=== PATIENT | male | born 1965 | race Hispanic/Latino ===

== ENCOUNTER 2018-08-02 19:11 | Emergency (ER) | payer MEDICAID ==
[2018-08-02 19:18] VITALS: BP 129/75
--- NOTE | 2018-08-02 23:15 | Emergency Department Report ---
ED Lower Extremity HPI - General Chief Complaint: Extremity Injury, Lower Stated Complaint: LEG PAIN Time Seen by Provider: 08/02/18 23:01 Source: patient Mode of arrival: Ambulatory Limitations: No Limitations - Related Data Previous Rx's Medication Instructions Recorded Last Taken Type Acetaminophen [Acetaminophen TAB] 1,000 mg PO Q6HR PRN #30 tablet 08/02/18 Unknown Rx Cyclobenzaprine [Flexeril] 10 mg PO TID PRN #30 tablet 08/02/18 Unknown Rx Diclofenac 1% [Diclofenac 1% 1 applicatio TP QID PRN #1 tube 08/02/18 Unknown Rx topical gel] Allergies Allergy/AdvReac Type Severity Reaction Status Date / Time No Known Allergies Allergy Verified 08/02/18 19:38 ED Review of Systems ROS: Stated complaint: LEG PAIN Other details as noted in HPI ED Past Medical Hx - Past Medical History Previous Medical History?: Yes Hx of Cancer: Yes (colon,.) Additional medical history: back pain, right arm surgery - Surgical History Past Surgical History?: Yes Additional Surgical History: cage placed in back, - Social History Smoking Status: Current Every Day Smoker Substance Use Type: None - Medications Home Medications: Home Medications Medication Instructions Recorded Confirmed Last Taken Type Acetaminophen [Acetaminophen TAB] 1,000 mg PO Q6HR PRN #30 tablet 08/02/18 Unknown Rx Cyclobenzaprine [Flexeril] 10 mg PO TID PRN #30 tablet 08/02/18 Unknown Rx Diclofenac 1% [Diclofenac 1% 1 applicatio TP QID PRN #1 tube 08/02/18 Unknown Rx topical gel] ED Physical Exam - General Limitations: No Limitations ED Course Vital Signs 08/02/18 08/02/18 19:17 19:35 Temperature 97.9 F Pulse Rate 76 82 Respiratory 18 18 Rate Blood Pressure 129/75 129/75 O2 Sat by Pulse 99 97 Oximetry ED Lower Extremity MDM - Medical Decision Making pt presents for LLE pain states he hyperextended leg going up stars last night, paain 5/10 since, pt is exacerbated by movement , pain is relieved by rest. pt remains ambulatory to baseline there is no calf tenderness, neg jeremy's, distal pulses intact, strength 5/5 bilat, will check [place] PM AWARE states he has pcp for hx of colon Cancer. [place] PM Aware 08/01/2018: OXYCODONE HCL 15 MG TABLET 150.0 [place] M [id number] (8164 135.0 MME Medicaid [place] Plan: ibuprofen, flexeril, diclofenace , follow up with pcp in 2-3 days, pt verbalized agreement and understanding of discharge plan. Critical care attestation.: If time is entered above; I have spent that time in minutes in the direct care of this critically ill patient, excluding procedure time. ED Disposition Clinical Impression: Muscle strain, lower leg Qualifiers: Encounter type: initial encounter Laterality: left Qualified Code(s): S86.912A - Strain of unspecified muscle(s) and tendon(s) at lower leg level, left leg, initial encounter Disposition: TO HOME OR SELFCARE Is pt being admited?: No Does the pt Need Aspirin: No Condition: Stable Instructions: Muscle Strain (ED) Prescriptions: Acetaminophen [Acetaminophen TAB] 1,000 mg PO Q6HR PRN #30 tablet PRN Reason: pain Diclofenac 1% [Diclofenac 1% topical gel] 1 applicatio TP QID PRN #1 tube PRN Reason: pain Cyclobenzaprine [Flexeril] 10 mg PO TID PRN #30 tablet PRN Reason: Muscle Spasm Referrals: KIMBERLEY SPENCER MD [Staff Physician] - 3-5 Days Forms: Work/School Release Form(ED) Time of Disposition: 23:20
--- NOTE | 2018-08-11 00:51 | Emergency Department Report ---
ED Lower Extremity HPI - General Chief Complaint: Extremity Injury, Lower Stated Complaint: LEG PAIN Time Seen by Provider: 08/02/18 23:01 Source: patient Mode of arrival: Ambulatory Limitations: No Limitations - History of Present Illness Initial Comments: pt is a 53 y/o male who presents for LLE pain. Pt states he hyperextended leg going up stars last night, pain described as 5/10 since aching sense, pain is exacerbated by movement, pain is relieved by rest. pt remains ambulatory to baseline per patient. MD Complaint: leg injury Onset/Timin -: days(s) Injury: Leg: Right Type of Injury: blunt Place: home Severity: moderate Severity scale (0 -10): 4 Improves With: nothing Worsens With: movement, palpation Context: fall, direct blow Associated Symptoms: ambulatory. denies: snap/pop sensation, swelling, numbness, tingling - Related Data Previous Rx's Medication Instructions Recorded Last Taken Type Acetaminophen [Acetaminophen TAB] 1,000 mg PO Q6HR PRN #30 tablet 08/02/18 Unknown Rx Cyclobenzaprine [Flexeril] 10 mg PO TID PRN #30 tablet 08/02/18 Unknown Rx Diclofenac 1% [Diclofenac 1% 1 applicatio TP QID PRN #1 tube 08/02/18 Unknown Rx topical gel] Allergies Allergy/AdvReac Type Severity Reaction Status Date / Time No Known Allergies Allergy Verified 08/02/18 19:38 ED Review of Systems ROS: Stated complaint: LEG PAIN Other details as noted in HPI Constitutional: denies: chills, fever Eyes: denies: eye pain, eye discharge, vision change ENT: denies: ear pain, throat pain Respiratory: denies: cough, shortness of breath, wheezing Cardiovascular: denies: chest pain, palpitations Endocrine: no symptoms reported Gastrointestinal: denies: abdominal pain, nausea, diarrhea Genitourinary: denies: urgency, dysuria Musculoskeletal: other (leg pain ). denies: back pain, joint swelling, arthralgia Skin: denies: rash, lesions Neurological: denies: headache, weakness, paresthesias Psychiatric: denies: anxiety, depression Hematological/Lymphatic: denies: easy bleeding, easy bruising ED Past Medical Hx - Past Medical History Previous Medical History?: Yes Hx of Cancer: Yes (colon,.) Additional medical history: back pain, right arm surgery - Surgical History Past Surgical History?: Yes Additional Surgical History: cage placed in back, - Social History Smoking Status: Current Every Day Smoker Substance Use Type: None - Medications Home Medications: Home Medications Medication Instructions Recorded Confirmed Last Taken Type Acetaminophen [Acetaminophen TAB] 1,000 mg PO Q6HR PRN #30 tablet 08/02/18 Unknown Rx Cyclobenzaprine [Flexeril] 10 mg PO TID PRN #30 tablet 08/02/18 Unknown Rx Diclofenac 1% [Diclofenac 1% 1 applicatio TP QID PRN #1 tube 08/02/18 Unknown Rx topical gel] ED Physical Exam - General Limitations: No Limitations General appearance: alert - Head Head exam: Present: atraumatic, normocephalic - Eye Eye exam: Present: normal appearance, PERRL, EOMI Pupils: Present: normal accommodation - ENT ENT exam: Present: normal orophraynx, mucous membranes moist, TM's normal bilaterally, normal external ear exam - Neck Neck exam: Present: full ROM. Absent: tenderness, meningismus, lymphadenopathy, thyromegaly - Expanded Neck Exam Expanded Neck exam: Absent: tenderness, midline deformity, anterior neck swelling, thyroid mass, carotid bruit, tracheal deviation - Respiratory Respiratory exam: Present: normal lung sounds bilaterally. Absent: respiratory distress, wheezes, stridor, chest wall tenderness - Cardiovascular Cardiovascular Exam: Present: regular rate, normal rhythm, normal heart sounds. Absent: systolic murmur, diastolic murmur, rubs, gallop - GI/Abdominal GI/Abdominal exam: Present: soft, normal bowel sounds. Absent: distended, tenderness, guarding, rebound, rigid, bruit, hernia - Rectal Rectal exam: Present: deferred - Extremities Exam Extremities exam: Present: normal inspection, full ROM, normal capillary refill. Absent: tenderness, pedal edema, joint swelling, calf tenderness - Expanded Lower Extremity Exam Right Hip exam: Present: normal inspection, full ROM. Absent: tenderness Upper Leg exam: Present: normal inspection, full ROM. Absent: tenderness Knee exam: Present: full ROM, full knee extension. Absent: tenderness, swelling, abrasion, pain w/ pronation/supination Lower Leg exam: Present: normal inspection, full ROM. Absent: tenderness, swelling, abrasion Ankle exam: Present: normal inspection, full ROM. Absent: tenderness, swelling, abrasion, anterior draw sign Foot/Toe exam: Present: normal inspection, full ROM. Absent: tenderness, swelling, abrasion, laceration, tenderness at base of 5th metatarsal Neuro vascular tendon exam: Absent: pulse deficit, motor deficit, sensory deficit, tendon deficit Gait: Positive: observed and normal - Back Exam Back exam: Present: normal inspection, full ROM. Absent: tenderness, CVA tenderness (R), CVA tenderness (L), muscle spasm, paraspinal tenderness, vertebral tenderness, rash noted - Neurological Exam Neurological exam: Present: alert, oriented X3, CN II-XII intact, normal gait, reflexes normal - Psychiatric Psychiatric exam: Present: normal affect, normal mood - Skin Skin exam: Present: warm, dry, intact, normal color. Absent: rash ED Course Vital Signs 08/02/18 08/02/18 08/02/18 19:17 19:35 23:37 Temperature 97.9 F Pulse Rate 76 82 78 Respiratory 18 18 17 Rate Blood Pressure 129/75 129/75 O2 Sat by Pulse 99 97 97 Oximetry ED Lower Extremity MDM - Medical Decision Making There is no calf tenderness, neg jeremy's, distal pulses intact, strength 5/5 bilat, no pain bruising or swelling or deformity on exam , will check [place] PM AWARE states he has pcp for hx of colon Cancer on oxycodone. I advised patient that I checked [place] PMAWARE site, pt immediatley advises that pain it totally relieved, I advises pt that he can only receive controlled substance pain medication prescribed by Pain management doctor per his agreement with same, I will rx short course of nsaid , muscle relaxant until he see pain management in 2 days, pt verbalized agreement and understanding of same. Last oxycodone RX: [place] PM Aware 08/01/2018: OXYCODONE HCL 15 MG TABLET 150.0 [place] M [id number] (8164 135.0 MME Medicaid [place] Plan: ibuprofen, flexeril, diclofenace , follow up with pcp pain management doctor in 2 days as scheduled. pt verbalized agreement and understanding of discharge plan. Critical care attestation.: If time is entered above; I have spent that time in minutes in the direct care of this critically ill patient, excluding procedure time. ED Disposition Disposition: DC- TO HOME OR SELFCARE Condition: Stable Instructions: Muscle Strain (ED) Prescriptions: Acetaminophen [Acetaminophen TAB] 1,000 mg PO Q6HR PRN #30 tablet PRN Reason: pain Diclofenac 1% [Diclofenac 1% topical gel] 1 applicatio TP QID PRN #1 tube PRN Reason: pain Cyclobenzaprine [Flexeril] 10 mg PO TID PRN #30 tablet PRN Reason: Muscle Spasm Referrals: KIMBERLEY SPENCER MD [Staff Physician] - 3-5 Days Forms: Work/School Release Form(ED)
== END 2018-08-02 23:37 | disposition home or self-care (01) ==
LOC: ED 19:11
DX: S86.912A Strain of unspecified muscle(s) and tendon(s) at lower leg level, left leg, initial encounter (principal); F17.200 Nicotine dependence, unspecified, uncomplicated; Z85.038 Personal history of other malignant neoplasm of large intestine; X50.9XXA Other and unspecified overexertion or strenuous movements or postures, initial encounter; Y93.89 Activity, other specified; Y92.89 Other specified places as the place of occurrence of the external cause; Y99.8 Other external cause status
CPT/HCPCS: 99282

== ENCOUNTER 2020-01-13 09:17 | Emergency (ER) | payer MEDICAID ==
[2020-01-13 09:28] VITALS: BP 116/65
--- NOTE | 2020-01-13 10:59 | Emergency Department Report ---
ED ENT HPI - General Chief complaint: Upper Respiratory Infection Stated complaint: SINUS Source: patient Mode of arrival: Ambulatory Limitations: No Limitations - History of Present Illness Initial comments: The patient was evaluated in the emergency department for symptoms described in the history of present illness. He/she was evaluated in the context of the global COVID-19 pandemic, which necessitated consideration that the patient might be at risk for infection with the virus that causes COVID-19. Institutional protocols and algorithms that pertain to the evaluation of patients at risk for COVID-19 are in a state of rapid change based on information released by regulatory bodies including the CDC and federal and state organizations. These policies and algorithms were followed during the patient's care in the emergency department. Please note that these policies, procedures and recommendations changed on a rapid basis. 54-year-old male with a history of stage IV colon cancer presents to the emergency room complaining of sinus congestion swollen face and a dental abscess for 1 week. Patient states that he had pinkeye last week but has been u sing [id number] medication and is now cleared. Patient denies any fever or chills but does report swelling on the right side of his face nasal congestion denies any shortness of breath fever chest pain. MD complaint: tooth pain Onset/Timin -: days(s) Severity: moderate Severity scale (0 -10): 6 Quality: aching Consistency: constant Improves with: none Worsens with: none Context- Dental: history of dental caries, poor dental care Associated Symptoms: gum swelling, toothache, rhinorrhea, other (Nasal congestion). denies: fever, cough - Related Data Previous Rx's Medication Instructions Recorded Last Taken Type Acetaminophen [Acetaminophen TAB] 1,000 mg PO Q6HR PRN #30 tablet 08/02/18 Unknown Rx Cyclobenzaprine [Flexeril] 10 mg PO TID PRN #30 tablet 08/02/18 Unknown Rx Diclofenac 1% [Diclofenac 1% 1 applicatio TP QID PRN #1 tube 08/02/18 Unknown Rx topical gel] Amoxicillin [Amoxicillin TAB] 875 mg PO BID 10 Days #20 tablet 01/13/20 Unknown Rx Fluticasone [Flonase] 1 spray NS QDAY #1 bottle 01/13/20 Unknown Rx Ibuprofen [Motrin 600 MG tab] 600 mg PO Q8H PRN #21 tablet 01/13/20 Unknown Rx Allergies Allergy/AdvReac Type Severity Reaction Status Date / Time No Known Allergies Allergy Verified 08/02/18 19:38 ED Dental HPI - General Chief complaint: Upper Respiratory Infection Stated complaint: SINUS Source: patient Mode of arrival: Ambulatory Limitations: No Limitations - Related Data Previous Rx's Medication Instructions Recorded Last Taken Type Acetaminophen [Acetaminophen TAB] 1,000 mg PO Q6HR PRN #30 tablet 08/02/18 Unknown Rx Cyclobenzaprine [Flexeril] 10 mg PO TID PRN #30 tablet 08/02/18 Unknown Rx Diclofenac 1% [Diclofenac 1% 1 applicatio TP QID PRN #1 tube 08/02/18 Unknown Rx topical gel] Amoxicillin [Amoxicillin TAB] 875 mg PO BID 10 Days #20 tablet 01/13/20 Unknown Rx Fluticasone [Flonase] 1 spray NS QDAY #1 bottle 01/13/20 Unknown Rx Ibuprofen [Motrin 600 MG tab] 600 mg PO Q8H PRN #21 tablet 01/13/20 Unknown Rx Allergies Allergy/AdvReac Type Severity Reaction Status Date / Time No Known Allergies Allergy Verified 08/02/18 19:38 ED Review of Systems ROS: Stated complaint: SINUS Other details as noted in HPI Comment: All other systems reviewed and negative ED Past Medical Hx - Past Medical History Additional medical history: back pain, right arm surgery, colon ca - Surgical History Additional Surgical History: cage placed in back, - Social History Smoking Status: Current Every Day Smoker - Medications Home Medications: Home Medications Medication Instructions Recorded Confirmed Last Taken Type Acetaminophen [Acetaminophen TAB] 1,000 mg PO Q6HR PRN #30 tablet 08/02/18 Unknown Rx Cyclobenzaprine [Flexeril] 10 mg PO TID PRN #30 tablet 08/02/18 Unknown Rx Diclofenac 1% [Diclofenac 1% 1 applicatio TP QID PRN #1 tube 08/02/18 Unknown Rx topical gel] Amoxicillin [Amoxicillin TAB] 875 mg PO BID 10 Days #20 tablet 01/13/20 Unknown Rx Fluticasone [Flonase] 1 spray NS QDAY #1 bottle 01/13/20 Unknown Rx Ibuprofen [Motrin 600 MG tab] 600 mg PO Q8H PRN #21 tablet 01/13/20 Unknown Rx ED Physical Exam - General Limitations: No Limitations General appearance: alert, in no apparent distress - Eye Eye exam: Present: normal appearance, PERRL - ENT ENT exam: Present: mucous membranes moist, other (Mild right facial swelling just lateral of the right nasal bridge) - Expanded ENT Exam Expanded TM/Canal exam: Perforation: Right TM, Left TM (Chronic) Teeth exam: Present: dental caries, gingival enlargement Throat exam: Positive: normal inspection - Neck Neck exam: Present: normal inspection, full ROM - Respiratory Respiratory exam: Present: normal lung sounds bilaterally. Absent: respiratory distress - Cardiovascular Cardiovascular Exam: Present: regular rate, normal rhythm. Absent: systolic murmur, diastolic murmur, rubs, gallop - Neurological Exam Neurological exam: Present: alert, oriented X3, normal gait - Psychiatric Psychiatric exam: Present: normal affect, normal mood - Skin Skin exam: Present: warm, dry, intact, normal color. Absent: rash ED Course Vital Signs 01/13/20 09:24 Temperature 97.5 F L Pulse Rate 76 Respiratory 18 Rate Blood Pressure 116/65 O2 Sat by Pulse 97 Oximetry ED Medical Decision Making - Medical Decision Making 54-year-old male with a history of stage IV colon cancer presents to the emergency room complaining of sinus congestion swollen face and a dental abscess for 1 week. Patient states that he had pinkeye last week but has been using [id number] medication and is now cleared. Patient denies any fever or chills but does report swelling on the right side of his face nasal congestion denies any shortness of breath fever chest pain. Patient will be treated with amoxicillin 875, ibuprofen 600 mg in Flonase. This will cover both sinusitis as well as a dental abscess. Instructed patient to follow-up with a primary care provider. Keep his appointments to the cancer center. Critical care attestation.: If time is entered above; I have spent that time in minutes in the direct care of this critically ill patient, excluding procedure time. ED Disposition Clinical Impression: Dental abscess Sinusitis Qualifiers: Sinusitis location: frontal Chronicity: acute Recurrence: non-recurrent Qualified Code(s): J01.10 - Acute frontal sinusitis, unspecified Disposition: TO HOME OR SELFCARE Is pt being admited?: No Does the pt Need Aspirin: No Condition: Stable Instructions: Sinusitis, Adult, [id number], Dental Abscess Additional Instructions: Complete antibiotics as prescribed take pain medication as needed use nasal spray as prescribed. Prescriptions: Amoxicillin [Amoxicillin TAB] 875 mg PO BID 10 Days #20 tablet Fluticasone [Flonase] 1 spray NS QDAY #1 bottle Ibuprofen [Motrin 600 MG tab] 600 mg PO Q8H PRN #21 tablet PRN Reason: Pain Referrals: PRIMARY CAREMD [Primary Care Provider] - 3-5 Days PRANAY CREWS MD [Staff Physician] - 3-5 Days
== END 2020-01-13 11:04 | disposition home or self-care (01) ==
LOC: ED 09:17
DX: K04.7 Periapical abscess without sinus (principal); J01.10 Acute frontal sinusitis, unspecified; F17.200 Nicotine dependence, unspecified, uncomplicated; Z79.899 Other long term (current) drug therapy
CPT/HCPCS: 99281

== ENCOUNTER 2020-05-23 16:43 | Emergency (ER) | payer MEDICAID ==
[2020-05-23 17:06] VITALS: BP 105/71
--- NOTE | 2020-05-23 17:14 | Emergency Department Report ---
ED ENT HPI - General Chief complaint: Dental/Oral Stated complaint: DIZZY Source: patient Mode of arrival: Ambulatory Limitations: No Limitations - History of Present Illness Initial comments: 55-year-old male presents to the emergency room complaining of a 1 day history of dental and gum pain and swelling. Patient states that he is aware that he has bad teeth. Patient states he had stage IV colon cancer and after he finished a long-term treatment of chemo his teeth started to crumble and break. Patient states he is aware that he needs to see a dentist but is waiting on his stimulus money to see 1. Patient denies any fever chills. States has been taking Goody powders. MD complaint: tooth pain Location: tooth # Severity scale (0 -10): 9 Quality: aching, sharp Consistency: constant Worsens with: none Context- Dental: history of dental caries, poor dental care - Related Data Previous Rx's Medication Instructions Recorded Last Taken Type Acetaminophen [Acetaminophen TAB] 1,000 mg PO Q6HR PRN #30 tablet 08/02/18 Unknown Rx Cyclobenzaprine [Flexeril] 10 mg PO TID PRN #30 tablet 08/02/18 Unknown Rx Diclofenac 1% [Diclofenac 1% 1 applicatio TP QID PRN #1 tube 08/02/18 Unknown Rx topical gel] Amoxicillin [Amoxicillin TAB] 875 mg PO BID 10 Days #20 tablet 01/13/20 Unknown Rx Fluticasone [Flonase] 1 spray NS QDAY #1 bottle 01/13/20 Unknown Rx Ibuprofen [Motrin 600 MG tab] 600 mg PO Q8H PRN #21 tablet 01/13/20 Unknown Rx Clindamycin [Clindamycin CAP] 300 mg PO Q8H 10 Days #30 cap 05/23/20 Unknown Rx Ibuprofen [Motrin 600 MG tab] 600 mg PO Q8H PRN #30 tablet 05/23/20 Unknown Rx Allergies Allergy/AdvReac Type Severity Reaction Status Date / Time No Known Allergies Allergy Verified 05/23/20 17:06 ED Dental HPI - General Chief complaint: Dental/Oral Stated complaint: DIZZY Source: patient Mode of arrival: Ambulatory Limitations: No Limitations - Related Data Previous Rx's Medication Instructions Recorded Last Taken Type Acetaminophen [Acetaminophen TAB] 1,000 mg PO Q6HR PRN #30 tablet 08/02/18 Unknown Rx Cyclobenzaprine [Flexeril] 10 mg PO TID PRN #30 tablet 08/02/18 Unknown Rx Diclofenac 1% [Diclofenac 1% 1 applicatio TP QID PRN #1 tube 08/02/18 Unknown Rx topical gel] Amoxicillin [Amoxicillin TAB] 875 mg PO BID 10 Days #20 tablet 01/13/20 Unknown Rx Fluticasone [Flonase] 1 spray NS QDAY #1 bottle 01/13/20 Unknown Rx Ibuprofen [Motrin 600 MG tab] 600 mg PO Q8H PRN #21 tablet 01/13/20 Unknown Rx Clindamycin [Clindamycin CAP] 300 mg PO Q8H 10 Days #30 cap 05/23/20 Unknown Rx Ibuprofen [Motrin 600 MG tab] 600 mg PO Q8H PRN #30 tablet 05/23/20 Unknown Rx Allergies Allergy/AdvReac Type Severity Reaction Status Date / Time No Known Allergies Allergy Verified 05/23/20 17:06 ED Review of Systems ROS: Stated complaint: DIZZY Other details as noted in HPI Comment: All other systems reviewed and negative ED Past Medical Hx - Past Medical History Hx of Cancer: Yes (colon) Additional medical history: back pain, right arm surgery, colon ca - Surgical History Additional Surgical History: cage placed in back, - Social History Smoking Status: Never Smoker Substance Use Type: None - Medications Home Medications: Home Medications Medication Instructions Recorded Confirmed Last Taken Type Acetaminophen [Acetaminophen TAB] 1,000 mg PO Q6HR PRN #30 tablet 08/02/18 Unknown Rx Cyclobenzaprine [Flexeril] 10 mg PO TID PRN #30 tablet 08/02/18 Unknown Rx Diclofenac 1% [Diclofenac 1% 1 applicatio TP QID PRN #1 tube 08/02/18 Unknown Rx topical gel] Amoxicillin [Amoxicillin TAB] 875 mg PO BID 10 Days #20 tablet 01/13/20 Unknown Rx Fluticasone [Flonase] 1 spray NS QDAY #1 bottle 01/13/20 Unknown Rx Ibuprofen [Motrin 600 MG tab] 600 mg PO Q8H PRN #21 tablet 01/13/20 Unknown Rx Clindamycin [Clindamycin CAP] 300 mg PO Q8H 10 Days #30 cap 05/23/20 Unknown Rx Ibuprofen [Motrin 600 MG tab] 600 mg PO Q8H PRN #30 tablet 03/25/21 Unknown Rx ED Physical Exam - General Limitations: No Limitations General appearance: alert, cachectic - Head Head exam: Present: atraumatic, normocephalic - Eye Eye exam: Present: normal appearance - Expanded ENT Exam Expanded Mouth exam: Absent: drooling, trismus Teeth exam: Present: dental caries, fractured tooth #, gingival enlargement Throat exam: Positive: normal inspection - Neck Neck exam: Present: full ROM - Respiratory Respiratory exam: Absent: accessory muscle use - Cardiovascular Cardiovascular Exam: Present: regular rate, normal rhythm. Absent: systolic murmur, diastolic murmur, rubs, gallop - Extremities Exam Extremities exam: Present: normal inspection, full ROM - Back Exam Back exam: Present: normal inspection - Neurological Exam Neurological exam: Present: alert, oriented X3, normal gait - Psychiatric Psychiatric exam: Present: normal affect, normal mood - Skin Skin exam: Present: warm, dry, intact, normal color. Absent: rash ED Course Vital Signs 05/23/20 17:03 Temperature 99.1 F Pulse Rate 104 H Respiratory 20 Rate Blood Pressure 105/71 O2 Sat by Pulse 98 Oximetry ED Medical Decision Making - Medical Decision Making 55-year-old male presents to the emergency room complaining of a 1 day history of dental and gum pain and swelling. Patient states that he is aware that he has bad teeth. Patient states he had stage IV colon cancer and after he finished a long-term treatment of chemo his teeth started to crumble and break. Patient states he is aware that he needs to see a dentist but is waiting on his stimulus money to see 1. Patient denies any fever chills. States has been taking Goody powders. Patient be placed on clindamycin 300 mg every 8 hours for 10 days and ibuprofen 600 mg p.o. every 8 hours as needed for pain. Patient is referred to a dentist. Critical care attestation.: If time is entered above; I have spent that time in minutes in the direct care of this critically ill patient, excluding procedure time. ED Disposition Clinical Impression: Dental abscess Disposition: TO HOME OR SELFCARE Is pt being admited?: No Does the pt Need Aspirin: No Condition: Stable Instructions: Dental Abscess, [id number] Additional Instructions: Complete antibiotics as prescribed. Pain medication as needed. Follow-up with a dentist. Prescriptions: Clindamycin [Clindamycin CAP] 300 mg PO Q8H 10 Days #30 cap Ibuprofen [Motrin 600 MG tab] 600 mg PO Q8H PRN #30 tablet PRN Reason: Pain Referrals: [facility] [Outside] - 3-5 Days [facility] [Outside] - 3-5 Days
[2020-05-23] MEDS ORDERED: IBUPROFEN 600 MG TAB PO ONE (17:16)
== END 2020-05-23 17:54 | disposition home or self-care (01) ==
LOC: ED 16:43
DX: K04.7 Periapical abscess without sinus (principal); Z79.1 Long term (current) use of non-steroidal anti-inflammatories (NSAID); Z79.2 Long term (current) use of antibiotics; Z79.899 Other long term (current) drug therapy
CPT/HCPCS: 99282

== ENCOUNTER 2021-04-15 11:06 | Emergency (ER) | payer MEDICAID ==
--- NOTE | 2021-04-15 12:25 | Emergency Department Report ---
ED ENT HPI - General Chief complaint: Dental/Oral Stated complaint: ABSCESS TOOTH Time Seen by Provider: 04/15/21 12:17 Source: patient Mode of arrival: Ambulatory Limitations: No Limitations - History of Present Illness Initial comments: 56-year-old male with a past history of colon cancer, currently in remission presents to the ER today with complaints of dental pain and gum swelling. Patient states that symptoms got worse this morning. Location upper and lower anterior jaw. He states things after starting chemo a few years ago has been having issues with his teeth. He currently does not have a dentist. He denies any fever, chills, drooling, trismus or any additional symptoms at this time. MD complaint: tooth pain -: This morning - Related Data Previous Rx's Medication Instructions Recorded Last Taken Type Acetaminophen [Acetaminophen TAB] 1,000 mg PO Q6HR PRN #30 tablet 08/02/18 Unknown Rx Cyclobenzaprine [Flexeril] 10 mg PO TID PRN #30 tablet 08/02/18 Unknown Rx Diclofenac 1% [Diclofenac 1% 1 applicatio TP QID PRN #1 tube 08/02/18 Unknown Rx topical gel] Amoxicillin [Amoxicillin TAB] 875 mg PO BID 10 Days #20 tablet 01/13/20 Unknown Rx Fluticasone [Flonase] 1 spray NS QDAY #1 bottle 01/13/20 Unknown Rx Ibuprofen [Motrin 600 MG tab] 600 mg PO Q8H PRN #21 tablet 01/13/20 Unknown Rx Clindamycin [Clindamycin CAP] 300 mg PO Q6H 10 Days #40 cap 04/15/21 Unknown Rx Ibuprofen [Motrin 600 MG tab] 600 mg PO Q8H PRN #30 tablet 04/15/21 Unknown Rx traMADoL [Ultram] 50 mg PO Q6HR PRN #10 tablet 04/15/21 Unknown Rx Allergies Allergy/AdvReac Type Severity Reaction Status Date / Time No Known Allergies Allergy Verified 05/23/20 17:06 ED Dental HPI - General Chief complaint: Dental/Oral Stated complaint: ABSCESS TOOTH Time Seen by Provider: 04/15/21 12:17 Source: patient Mode of arrival: Ambulatory Limitations: No Limitations - Related Data Previous Rx's Medication Instructions Recorded Last Taken Type Acetaminophen [Acetaminophen TAB] 1,000 mg PO Q6HR PRN #30 tablet 06/04/19 Unknown Rx Cyclobenzaprine [Flexeril] 10 mg PO TID PRN #30 tablet 08/02/18 Unknown Rx Diclofenac 1% [Diclofenac 1% 1 applicatio TP QID PRN #1 tube 08/02/18 Unknown Rx topical gel] Amoxicillin [Amoxicillin TAB] 875 mg PO BID 10 Days #20 tablet 01/13/20 Unknown Rx Fluticasone [Flonase] 1 spray NS QDAY #1 bottle 01/13/20 Unknown Rx Ibuprofen [Motrin 600 MG tab] 600 mg PO Q8H PRN #21 tablet 01/13/20 Unknown Rx Clindamycin [Clindamycin CAP] 300 mg PO Q6H 10 Days #40 cap 04/15/21 Unknown Rx Ibuprofen [Motrin 600 MG tab] 600 mg PO Q8H PRN #30 tablet 04/15/21 Unknown Rx traMADoL [Ultram] 50 mg PO Q6HR PRN #10 tablet 04/15/21 Unknown Rx Allergies Allergy/AdvReac Type Severity Reaction Status Date / Time No Known Allergies Allergy Verified 05/23/20 17:06 ED Review of Systems ROS: Stated complaint: ABSCESS TOOTH Other details as noted in HPI Comment: All other systems reviewed and negative Constitutional: denies: chills, fever ENT: dental pain Respiratory: denies: cough, shortness of breath, SOB with exertion, wheezing Cardiovascular: denies: chest pain, palpitations Gastrointestinal: denies: abdominal pain, nausea, diarrhea, constipation, hematemesis, hematochezia Genitourinary: denies: urgency, dysuria, frequency, hematuria, discharge, testicular pain, testicular mass Musculoskeletal: denies: back pain, joint swelling, myalgia Skin: denies: rash, lesions, change in color, change in hair/nails, pruritus Neurological: denies: headache, weakness, numbness, paresthesias, confusion, abnormal gait, vertigo ED Past Medical Hx - Past Medical History Additional medical history: back pain, right arm surgery, colon ca - Surgical History Additional Surgical History: cage placed in back, - Social History Smoking Status: Never Smoker Substance Use Type: None - Medications Home Medications: Home Medications Medication Instructions Recorded Confirmed Last Taken Type Acetaminophen [Acetaminophen TAB] 1,000 mg PO Q6HR PRN #30 tablet 08/02/18 Unknown Rx Cyclobenzaprine [Flexeril] 10 mg PO TID PRN #30 tablet 08/02/18 Unknown Rx Diclofenac 1% [Diclofenac 1% 1 applicatio TP QID PRN #1 tube 08/02/18 Unknown Rx topical gel] Amoxicillin [Amoxicillin TAB] 875 mg PO BID 10 Days #20 tablet 01/13/20 Unknown Rx Fluticasone [Flonase] 1 spray NS QDAY #1 bottle 01/13/20 Unknown Rx Ibuprofen [Motrin 600 MG tab] 600 mg PO Q8H PRN #21 tablet 01/13/20 Unknown Rx Clindamycin [Clindamycin CAP] 300 mg PO Q6H 10 Days #40 cap 04/15/21 Unknown Rx Ibuprofen [Motrin 600 MG tab] 600 mg PO Q8H PRN #30 tablet 04/15/21 Unknown Rx traMADoL [Ultram] 50 mg PO Q6HR PRN #10 tablet 04/15/21 Unknown Rx ED Physical Exam - General Limitations: No Limitations General appearance: alert, in no apparent distress - Head Head exam: Present: atraumatic - Eye Eye exam: Present: normal appearance, PERRL, EOMI Pupils: Present: normal accommodation - ENT ENT exam: Present: mucous membranes moist - Expanded ENT Exam Expanded Mouth exam: Present: normal external inspection Teeth exam: Present: dental caries 1 - Dental Tenderness, Other (sever dental decay with associated small dental absces) 2 - Dental Tenderness, Other (severe dental decay with associated small dental abscess) - Neck Neck exam: Present: normal inspection, full ROM. Absent: meningismus - Respiratory Respiratory exam: Absent: respiratory distress - Cardiovascular Cardiovascular Exam: Present: regular rate - Neurological Exam Neurological exam: Present: alert, oriented X3, CN II-XII intact, normal gait - Psychiatric Psychiatric exam: Present: normal affect, normal mood - Skin Skin exam: Present: intact ED Course Vital Signs 04/15/21 12:10 Temperature 98.7 F Pulse Rate 99 H Respiratory 18 Rate Blood Pressure 90/54 [Right] O2 Sat by Pulse 100 Oximetry Critical care attestation.: If time is entered above; I have spent that time in minutes in the direct care of this critically ill patient, excluding procedure time. ED Disposition Clinical Impression: Dental abscess Disposition: 01 HOME / SELF CARE / HOMELESS Is pt being admited?: No Does the pt Need Aspirin: No Condition: Stable Instructions: Dental Abscess, [id number] Additional Instructions: I recommend that you start taking the clindamycin as prescribed to completion. Take the pain medication as prescribed. Recommend that you follow-up with one of the dental clinics listed on the list given to you at discharge. Return to the ER if your symptoms worsens or changes in any way. Prescriptions: Clindamycin [Clindamycin CAP] 300 mg PO Q6H 10 Days #40 cap Ibuprofen [Motrin 600 MG tab] 600 mg PO Q8H PRN #30 tablet PRN Reason: Pain traMADoL [Ultram] 50 mg PO Q6HR PRN #10 tablet PRN Reason: Pain Referrals: PRIMARY CARE, [Referring] - 3-5 Days Time of Disposition: 12:25
[2021-04-15 13:57] VITALS: BP 116/76
== END 2021-04-15 13:00 | disposition home or self-care (01) ==
LOC: ED 11:06
DX: K04.7 Periapical abscess without sinus (principal)
CPT/HCPCS: 99282